=== PATIENT | female | born 1940 | race Caucasian/White ===

== ENCOUNTER 2021-05-22 19:54 | Inpatient (IN) ==
[2021-05-22 21:09] LABS: Basophils # 0.1 K/mcL (0.0-0.2); Basophils % 0.5 %; Eosinophils # 0.2 K/mcL (0.0-0.6); Eosinophils % 0.7 %; Hemoglobin 15.2 g/dL (11.5-15.4); Immature Granulocytes % 0.5 % (0-4); Lymphocytes # 1.8 K/mcL (0.6-4.6); Lymphocytes % 8.1 %; Mean Corpuscular HGB Conc 34.5 g/dL (31.6-35.5); Mean Corpuscular Hemoglobin 30.5 pg (28.0-33.3); Mean Corpuscular Volume 88.4 fL (83.0-100.0); Monocytes % 4.7 %; Neutrophils # 18.6 K/mcL (1.6-8.9); Platelet Count 343 K/mcL (140-400); Red Blood Count 4.98 M/mcL (3.82-4.97); Red Cell Distribution Width 14.8 % (11.5-14.5); Segmented Neutrophils % 85.5 %; White Blood Count 21.8 K/mcL (4.3-11.1)
[2021-05-22 21:17] LABS: INR 1.1; Prothrombin Time 12.3 Seconds (9.4-12.1)
[2021-05-22 21:20] LABS: Activated Partial Thrombo Time 28.4 Seconds (26.0-36.0)
[2021-05-22 21:28] LABS: BUN/Creatinine Ratio 13 (6-26); Blood Urea Nitrogen 13 mg/dL (8-23); Calcium 9.5 mg/dL (8.6-10.3); Carbon Dioxide 30 mEq/L (23-29); Chloride 93 mEq/L (98-107); Glucose 210 mg/dL (70-105); Osmolality,Calculated 284 (280-300); Potassium 3.2 mEq/L (3.5-5.1); Sodium 134 mEq/L (136-145); eGFR For African Americans > 60 (> 60); eGFR For Non-African Americans 55 (> 60)
[2021-05-22] MEDS ORDERED: Piperacillin/Tazobactam 3.375 GM in 0.9 % Sodium Chloride Mini Bag 100 ML IVPB ONE (23:05)
[2021-05-22] MEDS ORDERED: Ondansetron 4 MG/2 ML VIAL IVP PRN (23:21)
[2021-05-23] MEDS ORDERED: Piperacillin/Tazobactam 3.375 GM in 0.9 % Sodium Chloride Mini Bag 100 ML IVPB ONE (00:10)
[2021-05-23] MEDS ORDERED: *HR* HYDROcodone/Acet 10/325 mg TABLET PO PRN (00:10)
[2021-05-23] MEDS ORDERED: Ondansetron 4 MG/2 ML VIAL IVP PRN (00:10)
[2021-05-23 02:47] LABS: Adenovirus F 40/41 PCR Not detected (Not detect); Astrovirus PCR Not detected (Not detect); C.difficile Toxin A/B Gene PCR DETECTED (Not detect); Campylobacter by PCR Not detected (Not detect); Cryptosporidium by PCR Not detected (Not detect); Cyclospora cayetanensis PCR Not detected (Not detect); E. coli O157 by PCR Not detected (Not detect); Entamoeba histolytica PCR Not detected (Not detect); Enteroaggregative E.coli(EAEC) Not detected (Not detect); Enteropathogenic E.coli(EPEC) Not detected (Not detect); Enterotoxigenic E.coli (ETEC) Not detected (Not detect); Giardia lamblia PCR Not detected (Not detect); Norovirus GI/GII PCR Not detected (Not detect); Plesiomonas shigelloides PCR Not detected (Not detect); Rotavirus A PCR Not detected (Not detect); Salmonella PCR Not detected (Not detect); Sapovirus PCR Not detected (Not detect); Shig/EnteroinvasiveE coli EIEC Not detected (Not detect); Shigalike tox-prod E coli STEC Not detected (Not detect); Vibrio PCR Not detected (Not detect); Vibrio cholerae PCR Not detected (Not detect); Yersinia enterocolitica PCR Not detected (Not detect)
[2021-05-23 07:10] LABS: BUN/Creatinine Ratio 14 (6-26); Basophils # 0.1 K/mcL (0.0-0.2); Basophils % 0.4 %; Blood Urea Nitrogen 14 mg/dL (8-23); Calcium 9.3 mg/dL (8.6-10.3); Carbon Dioxide 30 mEq/L (23-29); Chloride 97 mEq/L (98-107); Eosinophils # 0.3 K/mcL (0.0-0.6); Eosinophils % 1.7 %; Glucose 187 mg/dL (70-105); Hematocrit 41.6 % (35.3-44.9); Hemoglobin 14.4 g/dL (11.5-15.4); Immature Granulocytes % 0.5 % (0-4); Lymphocytes # 1.7 K/mcL (0.6-4.6); Lymphocytes % 10.1 %; Mean Corpuscular HGB Conc 34.6 g/dL (31.6-35.5); Mean Corpuscular Hemoglobin 30.7 pg (28.0-33.3); Mean Corpuscular Volume 88.7 fL (83.0-100.0); Mean Platelet Volume 9.4 fL (9.4-12.4); Monocytes # 1.2 K/mcL (0.0-1.3); Monocytes % 6.9 %; Neutrophils # 13.5 K/mcL (1.6-8.9); Osmolality,Calculated 287 (280-300); Platelet Count 335 K/mcL (140-400); Potassium 2.9 mEq/L (3.5-5.1); Red Blood Count 4.69 M/mcL (3.82-4.97); Red Cell Distribution Width 14.9 % (11.5-14.5); Segmented Neutrophils % 80.4 %; Sodium 136 mEq/L (136-145); White Blood Count 16.8 K/mcL (4.3-11.1); eGFR For African Americans > 60 (> 60); eGFR For Non-African Americans 52 (> 60)
[2021-05-23] MEDS: rOPINIRole 1 MG TABLET PO SCH ×2 (08:00→21:19)
[2021-05-23] MEDS: Pregabalin 75 MG CAPSULE PO SCH ×2 (08:00→21:19)
[2021-05-23] MEDS: QUEtiapine Fumarate 100 MG TABLET PO SCH ×3 (08:01→21:18)
[2021-05-23] MEDS: Furosemide 40 MG TABLET PO SCH ×2 (08:01→17:35)
[2021-05-23] MEDS ORDERED: Ergocalciferol (VIT D2) 50,000 UNIT (1.25MG) CAP PO SCH (09:00)
[2021-05-23] MEDS: Vancomycin Oral Soln 125 MG/2.5 ML UDC PO SCH ×4 (09:10→21:18)
[2021-05-23] MEDS: 0.9 % Sodium Chloride 1,000 ML IVC SCH ×2 (09:10→21:23)
[2021-05-24 07:18] LABS: Basophils # 0.1 K/mcL (0.0-0.2); Basophils % 0.4 %; Eosinophils # 0.2 K/mcL (0.0-0.6); Eosinophils % 1.3 %; Hematocrit 36.3 % (35.3-44.9); Hemoglobin 12.4 g/dL (11.5-15.4); Immature Granulocytes % 0.7 % (0-4); Lymphocytes # 1.8 K/mcL (0.6-4.6); Lymphocytes % 13.5 %; Mean Corpuscular HGB Conc 34.2 g/dL (31.6-35.5); Mean Corpuscular Hemoglobin 30.7 pg (28.0-33.3); Mean Corpuscular Volume 89.9 fL (83.0-100.0); Mean Platelet Volume 9.3 fL (9.4-12.4); Monocytes # 1.3 K/mcL (0.0-1.3); Monocytes % 9.7 %; Platelet Count 275 K/mcL (140-400); Red Blood Count 4.04 M/mcL (3.82-4.97); Red Cell Distribution Width 14.8 % (11.5-14.5); Segmented Neutrophils % 74.4 %; White Blood Count 13.5 K/mcL (4.3-11.1)
[2021-05-24 07:28] LABS: BUN/Creatinine Ratio 13 (6-26); Blood Urea Nitrogen 11 mg/dL (8-23); Calcium 8.6 mg/dL (8.6-10.3); Carbon Dioxide 29 mEq/L (23-29); Chloride 99 mEq/L (98-107); Glucose 162 mg/dL (70-105); Magnesium 1.5 mg/dL (1.6-2.6); Osmolality,Calculated 283 (280-300); Potassium 3.2 mEq/L (3.5-5.1); Sodium 135 mEq/L (136-145); eGFR For African Americans > 60 (> 60); eGFR For Non-African Americans > 60 (> 60)
[2021-05-24] MEDS ORDERED: Magnesium Sulfate 1 GM/102 ML PIGGYBACK IVPB ONE (07:35)
[2021-05-24] MEDS: Furosemide 40 MG TABLET PO SCH ×2 (08:49→17:14)
[2021-05-24] MEDS: rOPINIRole 1 MG TABLET PO SCH ×2 (08:49→20:36)
[2021-05-24] MEDS: Vancomycin Oral Soln 125 MG/2.5 ML UDC PO SCH ×4 (08:50→20:37)
[2021-05-24] MEDS: Pregabalin 75 MG CAPSULE PO SCH (08:51)
[2021-05-24] MEDS: QUEtiapine Fumarate 100 MG TABLET PO SCH ×3 (08:51→20:36)
[2021-05-24] MEDS: *HR* HYDROcodone/Acet 5/325 mg TABLET PO PRN ×2 (10:34→17:14)
[2021-05-24] MEDS: 0.9 % Sodium Chloride 1,000 ML IVC SCH (11:48)
[2021-05-24] MEDS: traZODone 50 MG TABLET PO SCH (20:36)
[2021-05-25] MEDS: 0.9 % Sodium Chloride 1,000 ML IVC SCH ×2 (02:39→22:20)
[2021-05-25 07:07] LABS: Basophils # 0.1 K/mcL (0.0-0.2); Basophils % 0.8 %; Eosinophils # 0.3 K/mcL (0.0-0.6); Eosinophils % 2.8 %; Hematocrit 40.3 % (35.3-44.9); Hemoglobin 13.5 g/dL (11.5-15.4); Immature Granulocytes % 0.8 % (0-4); Lymphocytes % 21.1 %; Mean Corpuscular HGB Conc 33.5 g/dL (31.6-35.5); Mean Corpuscular Hemoglobin 30.3 pg (28.0-33.3); Mean Corpuscular Volume 90.4 fL (83.0-100.0); Mean Platelet Volume 9.9 fL (9.4-12.4); Monocytes # 1.1 K/mcL (0.0-1.3); Monocytes % 11.9 %; Neutrophils # 5.9 K/mcL (1.6-8.9); Platelet Count 279 K/mcL (140-400); Red Blood Count 4.46 M/mcL (3.82-4.97); Segmented Neutrophils % 62.6 %; White Blood Count 9.5 K/mcL (4.3-11.1)
[2021-05-25 07:33] LABS: BUN/Creatinine Ratio 17 (6-26); Blood Urea Nitrogen 13 mg/dL (8-23); Calcium 8.9 mg/dL (8.6-10.3); Carbon Dioxide 29 mEq/L (23-29); Chloride 98 mEq/L (98-107); Glucose 160 mg/dL (70-105); Magnesium 1.7 mg/dL (1.6-2.6); Osmolality,Calculated 286 (280-300); Potassium 3.2 mEq/L (3.5-5.1); Sodium 136 mEq/L (136-145); eGFR For African Americans > 60 (> 60); eGFR For Non-African Americans > 60 (> 60)
[2021-05-25] MEDS ORDERED: Potassium Chloride Elixir 20 MEQ/15 ML UDC PO ONE (08:21)
[2021-05-25] MEDS: rOPINIRole 1 MG TABLET PO SCH ×2 (08:53→20:25)
[2021-05-25] MEDS: Vancomycin Oral Soln 125 MG/2.5 ML UDC PO SCH ×4 (08:53→20:26)
[2021-05-25] MEDS: QUEtiapine Fumarate 100 MG TABLET PO SCH ×3 (08:54→20:26)
[2021-05-25] MEDS: Furosemide 40 MG TABLET PO SCH (08:55)
[2021-05-25] MEDS: *HR* HYDROcodone/Acet 5/325 mg TABLET PO PRN ×2 (09:03→15:13)
[2021-05-25] MEDS ORDERED: *HR* Dextrose 50 % in Water (Vial) 50 ML VIAL IVP PRN (15:30)
[2021-05-25] MEDS ORDERED: Dextrose Gel 15 GM/37.5 ML TUBE PO PRN ×2 (15:30)
[2021-05-25] MEDS ORDERED: D5% in Water 1,000 ML IVC PRN (15:30)
[2021-05-25] MEDS: Insulin LISPRO 300 UNITS/3 ML VIAL SUBQ SCH (17:25)
[2021-05-25] MEDS: traZODone 50 MG TABLET PO SCH (20:26)
[2021-05-25] MEDS ORDERED: Insulin LISPRO 300 UNITS/3 ML VIAL SUBQ SCH (21:00)
[2021-05-26] MEDS: 0.9 % Sodium Chloride 1,000 ML IVC SCH (04:12)
[2021-05-26 06:48] VITALS: BP 104/56
[2021-05-26] MEDS: Insulin LISPRO 300 UNITS/3 ML VIAL SUBQ SCH ×2 (07:33→12:00)
[2021-05-26 07:55] LABS: Basophils # 0.1 K/mcL (0.0-0.2); Basophils % 0.8 %; Eosinophils # 0.2 K/mcL (0.0-0.6); Eosinophils % 2.6 %; Hematocrit 36.9 % (35.3-44.9); Hemoglobin 12.4 g/dL (11.5-15.4); Immature Granulocytes % 0.7 % (0-4); Lymphocytes # 2.2 K/mcL (0.6-4.6); Lymphocytes % 24.5 %; Mean Corpuscular HGB Conc 33.6 g/dL (31.6-35.5); Mean Corpuscular Hemoglobin 30.2 pg (28.0-33.3); Mean Platelet Volume 9.8 fL (9.4-12.4); Monocytes # 0.9 K/mcL (0.0-1.3); Monocytes % 10.3 %; Neutrophils # 5.4 K/mcL (1.6-8.9); Platelet Count 304 K/mcL (140-400); Red Cell Distribution Width 14.9 % (11.5-14.5); Segmented Neutrophils % 61.1 %; White Blood Count 8.8 K/mcL (4.3-11.1)
[2021-05-26 08:17] LABS: BUN/Creatinine Ratio 20 (6-26); Blood Urea Nitrogen 16 mg/dL (8-23); Calcium 8.9 mg/dL (8.6-10.3); Carbon Dioxide 30 mEq/L (23-29); Chloride 100 mEq/L (98-107); Glucose 153 mg/dL (70-105); Osmolality,Calculated 288 (280-300); Potassium 3.8 mEq/L (3.5-5.1); Sodium 137 mEq/L (136-145); eGFR For African Americans > 60 (> 60); eGFR For Non-African Americans > 60 (> 60)
[2021-05-26] MEDS: *HR* HYDROcodone/Acet 5/325 mg TABLET PO PRN (10:04)
[2021-05-26] MEDS: QUEtiapine Fumarate 100 MG TABLET PO SCH ×2 (10:04→14:59)
[2021-05-26] MEDS: Vancomycin Oral Soln 125 MG/2.5 ML UDC PO SCH ×2 (10:04→14:59)
[2021-05-26] MEDS: rOPINIRole 1 MG TABLET PO SCH (10:04)
[2021-05-26 13:29] LABS: Estimated Average Glucose 183 mg/dl
== END 2021-05-26 15:43 | DRG 392 ==
LOC: EMEROOPIK 19:54 → INPPIK 19:54
PROVIDERS: ADMIT Family Medicine; ATTEND Family Medicine